=== PATIENT | female | born 1980 | race Hispanic/Latino ===

== ENCOUNTER 2017-08-30 11:49 | Emergency (ER) | payer OTHER ==
[2017-08-30] MEDS ORDERED: HYOSCYAMINE SULFATE 0.125 MG TAB.SUBL SL ONE (13:50)
[2017-08-30] MEDS ORDERED: ONDANSETRON ODT 4 MG TAB ONE (13:50)
[2017-08-30 13:59] LABS: APPEARANCE,URINE Cloudy (CLEAR); BILIRUBIN,URINE Negative (NEGATIVE); COLOR,URINE Dark Yellow (YELLOW); GLUCOSE, URINE (UA) >=1000 mg/dL (NEGATIVE); KETONES,URINE >=160 mg/dL (NEGATIVE); LEUKOCYTE ESTERASE ,URINE Small (NEGATIVE); NITRATE,URINE Negative (NEGATIVE); OCCULT BLOOD,URINE Negative (NEGATIVE); PROTEIN,URINE POS 1+ (NEGATIVE)
[2017-08-30 14:06] LABS: AMPHET/METH SCREEN,URINE NEGATIVE (NEGATIVE); BARBITURATE SCREEN, URINE NEGATIVE (NEGATIVE); BENZODIAZEPINES SCREEN,URINE NEGATIVE (NEGATIVE); CANNABINOID SCREEN,URINE NEGATIVE (NEGATIVE); COCAINE SCREEN,URINE NEGATIVE (NEGATIVE); OPIATE SCREEN,URINE NEGATIVE (NEGATIVE); PHENCYCLIDINE SCREEN,URINE NEGATIVE (NEGATIVE)
[2017-08-30 14:09] LABS: BASOPHILS % (AUTO) 0.5 % (0.0-5.0); HEMATOCRIT 48.1 % (36-48); LYMPHOCYTES % (AUTO) 21.4 % (21.0-51.0); MEAN CORPUSCULAR HEMOGLOBIN 27.3 pg (27.0-33.0); MEAN CORPUSCULAR HGB CONC 33.4 g/dL (32.0-36.0); MEAN CORPUSCULAR VOLUME 81.6 fL (79-99); MONOCYTES % (AUTO) 9.1 % (3.0-13.0); PLATELET COUNT (AUTO) 207 K/uL (130-400); RED BLOOD CELL COUNT(AUTO) 5.89 MIL/uL (4.00-5.50); RED CELL DISTRIBUTION WIDTH 14.5 % (11.0-15.5); WHITE BLOOD COUNT (AUTO) 9.2 K/uL (4.8-10.8)
[2017-08-30 14:21] LABS: CREATININE 0.8 mg/dL (0.5-1.5); POTASSIUM 3.9 mmol/L (3.5-5.1)
[2017-08-30 14:25] LABS: BILIRUBIN,DIRECT 0.1 mg/dL (0.0-0.3); BILIRUBIN,TOTAL 0.8 mg/dL (0.2-1.0); TOTAL PROTEIN, SERUM 7.2 g/dL (6.0-8.3)
[2017-08-30 14:33] LABS: RBC,URINE 0-1 /HPF (0-1)
[2017-08-30 14:34] LABS: BACTERIA,URINE Few /HPF (None Seen); MUCUS,URINE Few LPF (None Seen); SQUAMOUS EPITHELIAL CELL,UR Moderate /HPF (0-2)
[2017-08-30] MEDS ORDERED: FLUCONAZOLE 100 MG TAB ONE (16:16)
== END 2017-08-30 16:28 | disposition home or self-care (01) ==
LOC: EDH 11:49
DX: B37.3 Candidiasis of vulva and vagina (principal); E11.65 Type 2 diabetes mellitus with hyperglycemia; R94.5 Abnormal results of liver function studies; Z91.041 Radiographic dye allergy status; Z88.8 Allergy status to other drugs, medicaments and biological substances; Z79.4 Long term (current) use of insulin; Z90.49 Acquired absence of other specified parts of digestive tract
CPT/HCPCS: 36415; 80048; 80076; 80305; 81001; 82009; 83690; 85025

== ENCOUNTER 2021-09-26 21:40 | Emergency (ER) | payer BC, OTHER ==
[~2021-09-26] VITALS: Ht 167.6 cm; Wt 149.7 kg
[2021-09-26 22:23] LABS: BASOPHILS % (AUTO) 0.7 % (0.0-5.0); EOSINOPHILS % (AUTO) 1.4 % (0.0-8.0); HEMATOCRIT 41.5 % (36-48); LYMPHOCYTES % (AUTO) 19.4 % (21.0-51.0); MEAN CORPUSCULAR HEMOGLOBIN 28.1 pg (27.0-33.0); MEAN CORPUSCULAR HGB CONC 32.3 g/dL (32.0-36.0); MONOCYTES % (AUTO) 7.1 % (3.0-13.0); PLATELET COUNT (AUTO) 167 K/uL (130-400); RED BLOOD CELL COUNT(AUTO) 4.77 MIL/uL (4.00-5.50); WHITE BLOOD COUNT (AUTO) 10.1 K/uL (4.8-10.8)
[2021-09-26 22:33] LABS: CREATININE 0.8 mg/dL (0.5-1.5); POTASSIUM 3.4 mmol/L (3.5-5.1)
[2021-09-26 22:38] LABS: BILIRUBIN,TOTAL 0.5 mg/dL (0.2-1.0); TOTAL PROTEIN, SERUM 6.9 g/dL (6.0-8.3)
[2021-09-27 00:09] LABS: BILIRUBIN,URINE Negative (NEGATIVE); COLOR,URINE Yellow (YELLOW); GLUCOSE, URINE (UA) TRACE mg/dL (NEGATIVE); KETONES,URINE Trace mg/dL (NEGATIVE); LEUKOCYTE ESTERASE ,URINE Negative (NEGATIVE); NITRATE,URINE Negative (NEGATIVE); OCCULT BLOOD,URINE Negative (NEGATIVE); PH,URINE 5.5 (5.0-8.0); PROTEIN,URINE Negative (NEGATIVE)
[2021-09-27 00:10] LABS: APPEARANCE,URINE SLIGHTLY CLOUDY (CLEAR)
[2021-09-27 00:25] LABS: BACTERIA,URINE Few /HPF (None Seen); RBC,URINE 0-1 /HPF (0-1)
[2021-09-27] MEDS ORDERED: ACETAMINOPHEN 500 MG TABLET PO ONE (01:30)
[2021-09-27] MEDS ORDERED: ACETAMINOPHEN 500 MG TABLET ONE (01:42)
[2021-09-27] MEDS ORDERED: ACETAMINOPHEN 325 MG TAB ONE (05:30)
[2021-09-27] MEDS ORDERED: ACETAMINOPHEN 325 MG TAB PO ONE (05:30)
[2021-09-27 06:40] VITALS: BP 120/54
[2021-09-27] MEDS ORDERED: PREN1CAP35 PO (06:50)
== END 2021-09-27 06:52 | disposition home or self-care (01) ==
LOC: EDH 21:40
DX: O26.91 Pregnancy related conditions, unspecified, first trimester (principal); R10.31 Right lower quadrant pain; K62.5 Hemorrhage of anus and rectum; O99.341 Other mental disorders complicating pregnancy, first trimester; F41.9 Anxiety disorder, unspecified; F32.A Depression, unspecified; O24.911 Unspecified diabetes mellitus in pregnancy, first trimester; Z85.43 Personal history of malignant neoplasm of ovary; Z88.5 Allergy status to narcotic agent; Z90.49 Acquired absence of other specified parts of digestive tract; Z88.8 Allergy status to other drugs, medicaments and biological substances; Z91.040 Latex allergy status; Z3A.01 Less than 8 weeks gestation of pregnancy
CPT/HCPCS: 36415; 76817; 80053; 81001; 82270; 84702; 85025

== ENCOUNTER 2024-04-07 16:01 | Emergency (ER) | payer BC, MEDICARE ==
[~2024-04-07] VITALS: Ht 167.6 cm; Wt 140.6 kg
[~2024-04-07 16:01] MED LIST: PREN1CAP35 PO
[2024-04-07 16:03] VITALS: BP 98/68; PULSE 84; RESP 16; TEMP 98.6
--- NOTE | 2024-04-07 19:34 | NUR ---
Patient called in er lobby multiple times by triage nurse. no answer
--- NOTE | 2024-04-07 21:30 | ERN ---
General Chief Complaint: Nausea,Vomiting,Diarrhea Stated Complaint: N/V, ABD PAIN, CHEMO 2 DAYS AGO Time Seen by MD: 16:25 Time Seen by Midlevel: 16:25 Source: patient History of Present Illness Initial Comments 44-year-old female who presents to the ED due to nausea and vomiting. Patient reports weakness, headache but denies any fevers or further associated symptoms. Patient reports she received chemo last Sunday. PMHx ovarian and kidney cancer, anxiety, depression, DM Allergies: Coded Allergies: hydromorphone (Unverified Allergy, Intermediate, HIVES, 09/26/21) adhesive tape (Unverified Adverse Reaction, Unknown, 09/26/21) latex (Unverified Adverse Reaction, Unknown, 09/26/21) Home Meds Active Scripts 148/Iron/Folate 6/Dha (Tendera-Ob Softgel) 1 Each Capsule, 1 EACH PO DAILY, #30 CAP Prov:CLEMENTE RASHID MD 09/27/21 Past Medical History Past Medical History: Anxiety, Cancer, Depression, Diabetes-Type II, Other Medical History Other: ptsd, METS Past Surgical History: Cholecystectomy, BTL Surgical History Other: LUMPECTOMY LEFT BREAST Female( History) LMP: Nov 17, 2023 : 0 Aborts: 0 ROS Dictation Constitutional: Negative for fever,chills, and weight loss Eyes: Negative for injury, pain,redness, and discharge ENT: Negative for injury,pain or swelling Cardiovascular: Negative for chest pain, palpitations, and edema Respiratory: Negative for shortness of breath, cough, and wheezing, Abdomen/GI: Positive for nausea, vomiting Negative for abdominal pain, diarrhea, and constipation Back: Negative for injury and pain : Negative for painful urination, bleeding or discharge MS/Extremity: Negative for injury and deformity Skin: Negative for rash, and discoloration Neuro: Positive for headache, generalized weakness Negative for numbness, tingling, and seizure Psych: Negative for suicide ideation, homicidal ideation, and hallucinations Physical Exam Physical Exam Dictation General: awake, alert, no acute distress Head/Face: Normocephalic, atraumatic Eyes: normal conjunctiva ENT: oral cavity clear, oral mucosa moist Neck: Normal range of motion Cardiovascular: RRR, normal S1/S2 Respiratory: CTAB, no respiratory distress, No rales or wheezes Abdomen: Soft, non-tender, non-distended Skin: Warm, dry, normal turgor, no rash MS/Extremity: Pulses equal, no cyanosis, neurovascular intact, FROM Neuro: COAx4, GCS 15, no neurological deficits, normal gait Psych: Normal behavior, mood, and affect normal MDM MDM Differential diagnosis: Rationale: 44-year-old female who presents to the ED due to nausea and vomiting. Patient reports weakness, headache but denies any fevers or further associated symptoms. Patient reports she received chemo last Sunday. PMHx ovarian and kidney cancer, anxiety, depression, DM Patient eloped. ED Course Orders Procedure Category Date Status Time Cbc With Differential LAB 04/07/24 Logged 16:25 Comprehensive LAB 04/07/24 Logged Metabolic Panel 16:25 Lipase LAB 04/07/24 Logged 16:25 Urinalysis LAB 04/07/24 Logged W/Microscopic 16:25 Hcg,Quantitative LAB 04/07/24 Logged 16:25 Vital Signs Date Time Temp Pulse Resp B/P (MAP) Pulse Ox O2 Delivery O2 Flow Rate FiO2 04/07/24 16:03 98.6 84 16 98/68 97 Room Air 0 DX & DISP Disposition: Other(Comment) (Eloped) Departure Condition: Stable Referrals: NONE (PCP) BERYL HUNT Apr 07, 2024 21:30
== END 2024-04-07 19:40 | disposition left against medical advice (07) ==
LOC: EDH 16:01
DX: R11.2 Nausea with vomiting, unspecified (principal); R53.1 Weakness; R51.9 Headache, unspecified; E11.9 Type 2 diabetes mellitus without complications; Z79.899 Other long term (current) drug therapy; Z88.5 Allergy status to narcotic agent; Z90.49 Acquired absence of other specified parts of digestive tract; Z98.51 Tubal ligation status; Z98.890 Other specified postprocedural states
CPT/HCPCS: 99281